=== PATIENT | female | born 1970 | race African-American/Black ===

== ENCOUNTER 2018-01-13 12:35 | Emergency (ER) | payer OTHER ==
[~2018-01-13] VITALS: Ht 167.6 cm; Wt 69.9 kg
--- NOTE | 2018-01-13 15:13 | ED GI/GU/ABDOMINAL COMPLAINT ---
History of Present Illness General Chief Complaint: General Adult Stated Complaint: BIBA BACK PAIN, EPIGASTRIC PAIN Source: patient Exam Limitations: no limitations Vital Signs & Intake/Output Vital Signs & Intake/Output Vital Signs Date Time Temp Pulse Resp B/P B/P Pulse O2 O2 Flow FiO2 Mean Ox Delivery Rate 01/13 1605 98.6 74 18 126/88 98 Room Air 01/13 1457 95 Room Air 01/13 1247 98.3 89 18 131/89 98 Room Air Allergies Coded Allergies: No Known Allergies (01/13/18) Reconcile Medications Cyclobenzaprine HCl 10 MG TABLET 1 TAB PO QPM PRN MUSCLE STRAIN Meloxicam (Mobic) 15 MG TABLET 1 TAB PO DAILY PRN PAIN Triage Note: 47 YO FEMALE BIBBrianna FROM HOME. PT STATSE SHESTARTED AROUND 1130 WITH UPPER BACK PAIN THAT RADIATED INTO HER CHEST. DENIES SOB. EKG COMPLETED ON ARRIVAL AND SHOWN TO MD. Triage Nurses Notes Reviewed? yes ? N Is pt currently ? No Onset: Abrupt Duration: hour(s): Timing: single episode today Quality/Severity: moderate, sharpness Severity Numbers: 7 Location: MID THORACIC BACK Radiation: chest HPI: 47yo female with hx of mild mitral valve regurg BIBA to ED complaining of midthoracic back pain radiating to chest beginning this AM. Pain is worse with movement and deep inspiration. Patient admits to 5 days of new exercize program. Patient states that when she woke up pain began abruptly, described as sharp, 7 /10. Patient states that since she has been waiting in the waiting room her pain has improved, currently 4.5/10. Patient has no history of similar pain in the past. Patient denies cough, hemoptysis, abdominal pain, vomiting, fevers, chills, leg swelling, recent travel, hormone use. Patient saw her computer specialist Dr. Cerna last month and had a normal checkup. (Tish ELLIOTT,Karissa Luevano) Past History Travel History Traveled to [place] past 21 day No Medical History Any Pertinent Medical History? see below for history Cardiovascular: MITRAL VALVE REGURGITATIO Surgical History Surgical History: non-contributory Psychosocial History What is your primary language Indian Tobacco Use: Never used Family History Hx Contributory? No (Karissa Sanford) Review of Systems Review of Systems Constitutional: Reports: no symptoms. EENTM: Reports: no symptoms. Respiratory: Reports: see HPI. Cardiovascular: Reports: see HPI. GI: Reports: no symptoms. Genitourinary: Reports: no symptoms. Musculoskeletal: Reports: see HPI. Skin: Reports: no symptoms. Neurological/Psychological: Reports: no symptoms. Hematologic/Endocrine: Reports: no symptoms. Immunologic/Allergic: Reports: no symptoms. All Other Systems: Reviewed and Negative (Tish ELLIOTT,Karissa Luveano) Physical Exam Physical Exam General Appearance: well developed/nourished, no apparent distress, alert, awake Head: atraumatic, normal appearance Eyes: Bilateral: normal appearance. Ears, Nose, Throat, Mouth: hearing grossly normal, moist mucous membrane Neck: normal inspection, supple, full range of motion Respiratory: normal breath sounds, chest non-tender, no respiratory distress, lungs clear Cardiovascular: regular rate/rhythm Gastrointestinal: normal bowel sounds, soft, non-tender, no organomegaly Back: normal inspection, normal range of motion, no vertebral tenderness Extremities: normal range of motion, NO EDEMA Neurologic/Psych: awake, alert, oriented x 3 Skin: intact, normal color, warm/dry Core Measures ACS in differential dx? Yes Sepsis Present: No Sepsis Focused Exam Completed? No (Tish ELLIOTT,Karissa Luevano) Progress Differential Diagnosis: AMI, hernia, pancreatitis, peptic ulcer, PUD/GERD, PE, COSTOCONDRITIS Diagnostic Imaging: Viewed by Me: Radiology Read. Discussed w/RAD: Radiology Read. Radiology Impression: PATIENT: MARISEL ZEPEDA PRESENT AGE: 47 PATIENT ACCOUNT NO: [id number] : 70 LOCATION: [facility] ORDERING PHYSICIAN: Karissa ELLIOTT SERVICE DATE: 01/13/18 EXAM TYPE: RAD - XRY-CHEST XRAY, TWO VIEWS; XRY-THORACIC SPINE EXAMINATIONS: CHEST 2 VIEWS AND THORACIC SPINE 3 VIEWS CLINICAL INFORMATION: Pain. COMPARISON: None. TECHNIQUE: PA and lateral views of the chest were obtained. AP, lateral, swimmer's views of the thoracic spine are provided. FINDINGS: The cardiac silhouette is not enlarged. The mediastinal and hilar contours are unremarkable. There are neither pleural effusions nor pneumothoraces. There are no consolidations. The thoracic vertebra are in normal alignment. There are no discernible fractures. There is mild degenerative change within the mid cervical spine. The osseous structures are otherwise unremarkable. IMPRESSION: No evidence for acute disease. Unremarkable thoracic spine series. Mild degenerative change within the visualized mid cervical spine. DICTATED BY: Louis Khan MD DATE/TIME DICTATED :01/13/181651 SUPERINTENDENT SANITATION:FIONA DATE/TIME TRANSCRIBED:01/13/181651 CONFIDENTIAL, DO NOT COPY WITHOUT APPROPRIATE AUTHORIZATION. < Electronically signed in Other Vendor System> SIGNED BY: Louis Khan MD 01/13/181656 Initial ED EKG: sinus rhythm @80bpm, nonspecific ST changes, low voltage lateral leads (Karissa Sanford) Plan of Care: Orders Procedure Date/time Status TROPONIN LEVEL 01/13 154 Complete COMPREHENSIVE METABOLIC PANEL 01/13 154 Complete CBC WITHOUT DIFFERENTIAL 01/13 1547 Complete EKG 01/13 1238 Active Laboratory Tests 01/13/18 1557: Anion Gap 13, Estimated GFR > 60, BUN/Creatinine Ratio 14.3, Glucose 89, Calcium 9.7, Total Bilirubin 1.2, AST 16, ALT 16, Alkaline Phosphatase 53, Troponin I < 0.01, Total Protein 7.6, Albumin 4.3, Globulin 3.3, Albumin/Globulin Ratio 1.3, CBC w Diff NO MAN DIFF REQ, RBC 4.09 L, MCV 92.4, MCH 31.1 H, MCHC 33.7, RDW 13.1, MPV 8.1, Gran % 71.3, Lymphocytes % 19.2 L, Monocytes % 8.2, Eosinophils % 0.8, Basophils % 0.5, Absolute Granulocytes 2.6, Absolute Lymphocytes 0.7 L, Absolute Monocytes 0.3, Absolute Eosinophils 0, Absolute Basophils 0 The patient is PERC negative. Troponin is negative, EKG is stable, sinus rhythm. Patient's x-rays are within normal limits. Patient's pain is atypical, pleuritic, reproducible with certain range of motion on physical exam. Patient' s pain is likely musculoskeletal, she does not have cardiac risk factors. There is low suspicion for PE or acute coronary syndrome. Patient started on meloxicam and Flexeril for her symptoms. She was given strict return precautions. Patient ambulating without difficulty leaving the emergency department, vital signs are stable. The patient agrees with the plan of care. The patient was discussed with Dr. Lara who agrees with this plan. (Karissa Sanford) (Jane BRODERICK,Vlad Nova) Departure Departure Disposition: HOME OR SELF CARE Condition: Stable Clinical Impression Primary Impression: Back pain Qualifiers: Back pain location: thoracic back pain Chronicity: acute Back pain laterality: midline Qualified Code: M54.6 - Pain in thoracic spine Secondary Impressions: Thoracic myofascial strain Qualifiers: Encounter type: initial encounter Qualified Code: S29.019A - Strain of muscle and tendon of unspecified wall of thorax, initial encounter Referrals: Devorah Sandoval APRN (PCP/Family) Additional Instructions: Take meloxicam as prescribed as needed for pain. Take Flexeril as prescribed as needed for muscle strain, this may cause drowsiness, take this medication at night. Return with any worsening symptoms or concerns such as chest pain, shortness of breath, feeling is that he may pass out. Please note that there might be incidental findings in your evaluation that are unrelated to the current emergency department visit. Please notify your primary care doctor about this emergency department visit in order to obtain and review all of the testing performed so that these incidental findings can be monitored as needed. If you had an x-ray performed, please understand that some fractures may not be seen on the initial set of x-rays. If your symptoms persist you might need a repeat set of x-rays to check for such a fracture. If you had a laceration evaluated, please understand that foreign bodies such as glass or wood may not be visible to the naked eye or on plain x-rays. If the wound becomes red, swollen, increasingly more painful or if there is any drainage from the wound, please have it reevaluated by a physician for the possibility of a retained foreign body. If you're unable to follow up as outlined in the discharge instructions please return to the emergency department. Thank you for choosing the [facility] Emergency Department for your care. It was a pleasure to serve you today. Departure Forms: Customer Survey General Discharge Information Prescriptions: Current Visit Scripts Cyclobenzaprine HCl 1 TAB PO QPM PRN MUSCLE STRAIN #10 TAB Meloxicam (Mobic) 1 TAB PO DAILY PRN PAIN #10 TAB (Karissa Sanford) PA/ADVERTISING SPECIALIST Co-Sign Statement Statement: ED Attending supervision documentation- [] I saw and evaluated the patient. I have also reviewed all the pertinent lab results and diagnostic results. I agree with the findings and the plan of care as documented in the PA's/ADVERTISING SPECIALIST's documentation. [X] I have reviewed the ED Record and agree with the PA's/ADVERTISING SPECIALIST's documentation. [] Additions or exceptions (if any) to the PAs/ADVERTISING SPECIALIST's note and plan are summarized below: [] (Jane BRODERICK,Vlad Nova)
[2018-01-13 16:06] LABS: ABSOLUTE BASOPHIL COUNT 0 /CUMM (0.0-0.2); ABSOLUTE EOSINOPHIL COUNT 0 /CUMM (0.0-0.7); ABSOLUTE GRANULOCYTE CT 2.6 /CUMM (1.4-6.5); ABSOLUTE LYMPH COUNT 0.7 /CUMM (1.2-3.4); ABSOLUTE MONOCYTE COUNT 0.3 /CUMM (0.10-0.60); BASOPHIL % 0.5 % (0.0-2.0); EOSINOPHIL % 0.8 % (0-5); HEMATOCRIT 37.8 % (37-47); MEAN CORPUSCULAR HGB 31.1 PG (27.0-31.0); MEAN CORPUSCULAR HGB CONC 33.7 G/DL (33.0-37.0); MEAN CORPUSCULAR VOLUME 92.4 FL (81.0-99.0); MEAN PLATELET VOLUME 8.1 FL (7.4-10.4); PLATELET COUNT 254 /CUMM (130-400); RBC DISTRIBUTION WIDTH 13.1 % (11.5-14.5); RED BLOOD CELL CT 4.09 /CUMM (4.20-5.40)
[2018-01-13 16:30] LABS: GRANULOCYTE % 71.3 % (42.2-75.2); WHITE BLOOD CELL COUNT 3.6 /CUMM (4.8-10.8)
--- NOTE | 2018-01-13 16:57 | RADIOLOGY REPORT ---
EXAMINATIONS: CHEST 2 VIEWS AND THORACIC SPINE 3 VIEWS CLINICAL INFORMATION: Pain. COMPARISON: None. TECHNIQUE: PA and lateral views of the chest were obtained. AP, lateral, swimmer's views of the thoracic spine are provided. FINDINGS: The cardiac silhouette is not enlarged. The mediastinal and hilar contours are unremarkable. There are neither pleural effusions nor pneumothoraces. There are no consolidations. The thoracic vertebra are in normal alignment. There are no discernible fractures. There is mild degenerative change within the mid cervical spine. The osseous structures are otherwise unremarkable. IMPRESSION: No evidence for acute disease. Unremarkable thoracic spine series. Mild degenerative change within the visualized mid cervical spine.
[2018-01-13] MEDS ORDERED: MOBIC15 M1 PO (17:44)
[2018-01-13] MEDS ORDERED: CYCLOBENZAPRINE10 M1 PO (17:44)
[2018-01-13 17:47] VITALS: BP 124/88
== END 2018-01-13 17:54 ==
LOC: ERH 12:35
PROVIDERS: Physician Assistant
DX: S29.012A Strain of muscle and tendon of back wall of thorax, initial encounter (principal); X58.XXXA Exposure to other specified factors, initial encounter; Y92.9 Unspecified place or not applicable; Y93.9 Activity, unspecified
CPT/HCPCS: 71046; 72070; 93005; 93010